=== PATIENT | male | born 1995 | race Caucasian/White ===

== ENCOUNTER 2024-12-26 22:54 | Emergency (ER) | payer SELFPAY ==
[~2024-12-26] VITALS: Ht 188 cm; Wt 104.3 kg
[2024-12-26] MEDS ORDERED: Morphine 4 MG/ML VIAL IV PRN ×2 (23:15)
[2024-12-26 23:21] LABS: BASO # 0.03 K/mm3 (0.02-0.10); EOS # 0.13 K/mm3 (0.04-0.40); HEMATOCRIT 39.2 % (42.0-52.0); HEMOGLOBIN 13.2 g/dL (13.5-18.0); LYMPH# 2.73 K/mm3 (1.50-4.00); MEAN CELL VOLUME 87 fl (78-100); MEAN CORPUSCULAR HEMOGLOBIN 29 pg (27-31); MEAN CORPUSCULAR HGB CONC 34 g/dL (33-37); MEAN PLATELET VOLUME 9.4 fl (7.4-10.4); MONO # 0.46 K/mm3 (0.20-0.80); NEU # 9.97 K/mm3 (1.40-6.50); PLATELET COUNT 270 K/mm3 (130-400); RED BLOOD COUNT 4.52 M/mm3 (4.20-5.60); RED CELL DISTRIBUTION WIDTH 12.7 % (11.5-14.5); WHITE BLOOD COUNT 13.4 K/mm3 (4.8-10.8)
[2024-12-26 23:28] LABS: ALBUMIN 4.4 g/dL (3.5-5.0)
[2024-12-26 23:29] LABS: CALCIUM 9.6 mg/dL (8.3-10.5)
[2024-12-26 23:30] LABS: TOTAL PROTEIN 7.1 g/dL (6.4-8.3)
[2024-12-26 23:32] LABS: TOTAL BILIRUBIN 0.2 mg/dL (0.2-1.2)
[2024-12-27] MEDS ORDERED: NS 100 ML IV SCH (00:16)
[2024-12-27] MEDS ORDERED: Iohexol 300 - 100 ML VIAL IV ONE (00:16)
[2024-12-27] MEDS ORDERED: Pantoprazole 40 MG in NS 10 ML IV ONE (02:00)
[2024-12-27 02:06] LABS: URINE APPEARANCE CLEAR (CLEAR); URINE BILIRUBIN NEGATIVE (NEGATIVE); URINE BLOOD NEGATIVE (NEGATIVE); URINE COLOR YELLOW (YELLOW); URINE GLUCOSE NEGATIVE (NEGATIVE); URINE KETONE NEGATIVE (NEGATIVE); URINE LEUKOCYTE ESTERASE NEGATIVE (NEGATIVE); URINE NITRATE NEGATIVE (NEGATIVE); URINE PROTEIN(semi-quant) NEGATIVE (NEGATIVE); URINE WBC 0-1 /hpf (0-3)
[2024-12-27] MEDS ORDERED: PERCOCET 325 MG1 TA2 PO ×2 (02:12→02:15)
[2024-12-27] MEDS ORDERED: PANTOPRAZOLE SO40 MG PO (02:13)
[2024-12-27] MEDS ORDERED: Home oxyCODONE/Acetaminophen 5/325 MG #4 TAB/PACK PO ONE (02:15)
[2024-12-27 02:26] VITALS: BP 114/69
== END 2024-12-27 02:26 | disposition home or self-care (01) ==
LOC: ED 22:54
PROVIDERS: Family Medicine
DX: R10.13 Epigastric pain (principal); R10.811 Right upper quadrant abdominal tenderness; N28.89 Other specified disorders of kidney and ureter; Z87.891 Personal history of nicotine dependence
CPT/HCPCS: J2270; J2470; Q9967